=== PATIENT | male | born 1955 | race Caucasian/White ===

== ENCOUNTER 2020-05-20 10:58 | Day surgery (SDC) | payer MEDICARE, OTHER ==
[2020-05-20] VITALS (11 sets, daily range): BP systolic 125–159; BP diastolic 62–88
[~2020-05-20] VITALS: Ht 185.4 cm; Wt 112.9 kg
[2020-05-20] MEDS ORDERED: normal saline 1,000 ML IV SCH (11:10)
[2020-05-20] MEDS ORDERED: diphenhydrAMINE 25mg capsule PO PRN (11:10)
[2020-05-20] MEDS ORDERED: ASPI81TA30 PO (11:29)
[2020-05-20] MEDS ORDERED: METO-395 PO (11:29)
[2020-05-20] MEDS ORDERED: PIOG45TA65 PO (11:29)
[2020-05-20] MEDS ORDERED: ATOR40TA72 PO (11:29)
[2020-05-20] MEDS ORDERED: TRAM50TA2 PO (11:29)
[2020-05-20] MEDS ORDERED: HYDR12.55 PO (11:29)
[2020-05-20] MEDS ORDERED: LOSA100T57 PO (11:29)
[2020-05-20] MEDS ORDERED: NABU750T2 PO (11:29)
[2020-05-20] MEDS ORDERED: METF-438 PO (11:29)
[2020-05-20 12:24] LABS: BASOPHILS % (AUTO) 0.7 % (0-1); EOSINOPHILS # (AUTO) 0.1 X10'3 (0-0.9); HEMATOCRIT 38.2 % (42.0-52.0); LYMPHOCYTES % (AUTO) 24.9 % (21-51); MEAN CORPUSCULAR HEMOGLOBIN 35.3 PG (27.0-31.0); MEAN CORPUSCULAR HGB CONC 34.1 g/dL (33.0-36.5); MEAN CORPUSCULAR VOLUME 103.4 FL (78-98); MEAN PLATELET VOLUME 7.3 FL (7.4-10.4); MONOCYTES # (AUTO) 0.3 X10'3 (0-0.9); MONOCYTES % (AUTO) 8.1 % (2-12); NEUTROPHILS # (AUTO) 2.7 X10'3 (1.8-7.7); NEUTROPHILS % (AUTO) 64.3 % (42-75); PLATELET COUNT 173 X10'3 (140-440); RED CELL DISTRIBUTION WIDTH 13.5 % (11.5-14.5); WHITE BLOOD COUNT 4.1 X10'3 (4.5-11.0)
[2020-05-20 12:30] LABS: ALBUMIN 4.6 G/DL (3.4-5.0); ANION GAP 10 (8-16); BLOOD UREA NITROGEN 17 MG/DL (7-18); BUN/CREATININE RATIO 14.2 (5.4-32.0); CALCIUM 9.8 MG/DL (8.5-10.1); CHLORIDE 104 MMOL/L (99-107); GLUCOSE 132 MG/DL (70-104); MAGNESIUM 1.6 MG/DL (1.5-2.4); POTASSIUM 4.5 MMOL/L (3.5-5.1); SODIUM 140 MMOL/L (135-145); TOTAL CARBON DIOXIDE 25.7 MMOL/L (24-32); eGFR 61 ML/MIN
[2020-05-20] MEDS ORDERED: fentaNYL/PF 50MCG/1 ML 2ML syringe ONE (12:39)
[2020-05-20] MEDS ORDERED: iohexol 350 MG/ML 50ML vial IV ONE (12:39)
[2020-05-20] MEDS ORDERED: iohexol 350MG/ML 100ml bottle IV ONE (12:39)
[2020-05-20] MEDS ORDERED: heparin 1,000unit/ml 10ml vial 10 ML ONE (12:39)
[2020-05-20] MEDS ORDERED: LIDOcaine 1% (10mg/ml)w/preservative injection 20ml MDV ONE (12:39)
[2020-05-20] MEDS ORDERED: midazolam 2 mg/2 ml injection ONE ×2 (12:39→13:01)
[2020-05-20] MEDS ORDERED: HYDROcodone/acetaminophen 5mg/325mg tablet PO PRN (14:15)
[2020-05-20] MEDS ORDERED: HYDROcodone/acetaminophen 10/325mg tab PO PRN (14:15)
[2020-05-20] MEDS ORDERED: OXAZEpam 15mg capsule PO PRN (14:15)
== END 2020-05-20 19:00 | disposition home or self-care (01) ==
LOC: SSTAY O 10:58
PROVIDERS: ATTEND Internal Medicine Cardiovascular Disease
DX: R94.39 Abnormal result of other cardiovascular function study (principal); I25.118 Atherosclerotic heart disease of native coronary artery with other forms of angina pectoris; I10 Essential (primary) hypertension; E78.5 Hyperlipidemia, unspecified; E11.9 Type 2 diabetes mellitus without complications; I47.1 Supraventricular tachycardia; Z79.899 Other long term (current) drug therapy; Z79.84 Long term (current) use of oral hypoglycemic drugs; Z79.82 Long term (current) use of aspirin; Z98.41 Cataract extraction status, right eye; Z98.42 Cataract extraction status, left eye; Z98.890 Other specified postprocedural states; Z72.89 Other problems related to lifestyle; Z88.8 Allergy status to other drugs, medicaments and biological substances; Z87.891 Personal history of nicotine dependence; Z95.5 Presence of coronary angioplasty implant and graft; Z80.9 Family history of malignant neoplasm, unspecified; Z82.49 Family history of ischemic heart disease and other diseases of the circulatory system
CPT/HCPCS: 36415; 80048; 82948; 83735; 85025; 85610; 93005; 93458; 99152; 99153; C1760; C1769; C1894; J1644; J2001; J2250; J3010; J7030; Q0163; Q9967; A6258